=== PATIENT | male | born 1995 | race African-American/Black ===

== ENCOUNTER 2018-07-13 03:32 | Emergency (ER) | payer OTHER ==
[~2018-07-13] VITALS: Ht 170.2 cm; Wt 70.5 kg
[2018-07-13 03:44] VITALS: BP 125/102; PULSE 107; RESP 19; Ht 170.2 cm; Wt 70.5 kg
[2018-07-13] MEDS ORDERED: LORAZEPAM 1 MG TAB PO ONE (04:30)
--- NOTE | 2018-07-13 04:34 | ERD ---
ER Documentation Chief Complaint Chief Complaint RA39; METH USE - ACTING BIZARRE HPI Is a 23-year-old male brought in by his concern of methamphetamine abuse and acting bizarre. Patient admits to using methamphetamines along with weed. Denies suicidal homicidal ideation. He denies auditory or visual hallucination. Denies any other current complaints. ROS All systems reviewed and are negative except as per history of present illness. PMhx/Soc Hx Miscellaneous Medical Probl: Yes (DRUG USE) Hx Alcohol Use: Yes Hx Substance Use: Yes (METH, COCAINE, WEED) Hx Tobacco Use: Yes Smoking Status: Current every day smoker Physical Exam Vitals Vital Signs Date Temp Pulse Resp B/P (MAP) Pulse Ox O2 O2 Flow FiO2 Time Delivery Rate 07/13/18 98.7 107 19 125/102 100 03:44 (110) Physical Exam Const: No acute distress Head: Atraumatic Eyes: Normal Conjunctiva ENT: Normal External Ears, Nose and Mouth. Neck: Full range of motion. No meningismus. Resp: Clear to auscultation bilaterally Cardio: Regular rate and rhythm, no murmurs Abd: Soft, non tender, non distended. Normal bowel sounds Skin: No petechiae or rashes Back: No midline or flank tenderness Ext: No cyanosis, or edema Neur: Awake and alert Psych: Normal Mood and Affect Results 24 hrs Current Medications Medications Dose Sig/Andrei Start Time Status Last (Trade) Ordered Route PRN Stop Time Admin Dose Reason Admin Lorazepam 2 mg ONCE ONCE 07/13/18 DC (Ativan) PO 04:30 07/13/18 04:31 Procedures/MDM Medical decision making: Patient here for central drug abuse. Is been advised stop using drugs. Stable for outpatient management. ANO x4 with ability to negotiate the community. Departure Diagnosis: Primary Impression: Drug use Additional Impression: Drug abuse Condition: Stable Patient Instructions: Drug Abuse [place] VELASQUEZ July 13, 2018 04:34
== END 2018-07-13 09:59 | disposition home or self-care (01) ==
LOC: E/R 03:32
DX: F15.10 Other stimulant abuse, uncomplicated (principal); F17.210 Nicotine dependence, cigarettes, uncomplicated
CPT/HCPCS: Z7502; Z7610; 99283